=== PATIENT | female | born 1965 | race Caucasian/White ===

== ENCOUNTER 2022-11-07 09:22 | Day surgery (SDC) | payer OTHER ==
[2022-11-07] VITALS (16 sets, daily range): BP systolic 95–142; BP diastolic 59–93
[~2022-11-07] VITALS: Ht 164 cm; Wt 50.5 kg
--- NOTE | 2022-11-07 10:31 | NUR ---
Ambulatory in Day Surgery History, Chart, Medications and Allergies reviewed before start of procedure. Pre-Op teaching done. Pt verbalizes understanding. Patient States Post-Procedure ride home has been arranged.
--- NOTE | 2022-11-07 11:41 | NUR ---
11/07/22 1141 Agatha Whitaker HISTORY, CHART, MEDICATIONS AND ALLERGIES REVIEWED BEFORE START OF PROCEDURE. PATIENT CONFIRMS NPO STATUS AND AGREES WITH SCHEDULED PROCEDURE. 3-LEAD EKG REVIEWED WITH PHYSICIAN PRIOR TO START OF PROCEDURE. MONITOR INTACT WITH CONTINUOUS PULSE OXIMETRY,CAPNOGRAPHY, 3-LEAD EKG, INTERMITTENT BP. SUPPLEMENTAL O2 TO BE TITRATED THROUGHOUT PROCEDURE TO MAINTAIN O2 SATURATION ABOVE 90%. PATIENT DETERMINED TO BE ASA APPROPRIATE FOR PROPOFOL SEDATION PRIOR TO START OF PROCEDURE BY DR. MYERS. MEDICATION ADMINISTRATION BY ORD.NCP, CHARTING COMPLETED BY ORD.ERF.
--- NOTE | 2022-11-07 12:34 | NUR ---
Discharge instructions reviewed with patient. Patient verbalizes understanding. Copy given to patient to take home. PT STATES SHE HAS SOME ABD CRAMPING, ENCOURAGED PT TO MOVE AROUND, LAY ON LEFT SIDE, AND TAKE WARM FLUIDS TO HELP AT HOME. Discharged via wheelchair to private car for ride home.
== END 2022-11-07 12:39 | disposition home or self-care (01) ==
LOC: ORSCMMR 09:22 → ORD 10:30 → ORSCMMR 12:39
PROVIDERS: Internal Medicine Gastroenterology
PROC: 0DBM8ZX Excision of Descending Colon, Via Natural or Artificial Opening Endoscopic, Diagnostic (ICD-10-PCS; principal; 2022-11-07 10:30)
DX: Z12.11 Encounter for screening for malignant neoplasm of colon (principal); D12.4 Benign neoplasm of descending colon; Z79.3 Long term (current) use of hormonal contraceptives
CPT/HCPCS: 88305; J2250; J2405; J2704; J3010; J7120